=== PATIENT | female | born 1965 | race Caucasian/White ===

== ENCOUNTER 2023-08-16 04:34 | Day surgery (SDC) | payer OTHER ==
[2023-08-09 14:30] VITALS: BMI 23.6
[2023-08-16] MEDS ORDERED: ceFAZolin SODIUM 1 GM VIAL ONE ×2 (06:47→08:03)
[2023-08-16] MEDS: PHENAZOPYRIDINE HCL 100 MG TABLET (FP) PO ONE (06:55)
[2023-08-16] MEDS ORDERED: MIDAZOLAM HCL 2 MG/2 ML SINGLE DOSE VIAL ONE (07:14)
[2023-08-16] MEDS ORDERED: ROCURONIUM BROMIDE 50 MG/5 ML SYRINGE ONE (07:14)
[2023-08-16] MEDS ORDERED: SUCCINYLCHOLINE CHLORIDE 200 MG/10 ML SYRINGE ONE (07:14)
[2023-08-16] MEDS ORDERED: PROPOFOL 20 ML ONE (07:14)
[2023-08-16] MEDS ORDERED: LIDOCAINE HCL/PF 2% SDV 5ML VIAL ONE (07:14)
[2023-08-16] MEDS ORDERED: BUPIVACAINE HCL/PF 0.25% (2.5MG/ML) 10 ML VIAL ONE (07:36)
[2023-08-16] MEDS ORDERED: LIDOCAINE HCL 1%, 10 MG/ML (20ML VIAL) ONE (07:36)
[2023-08-16] MEDS ORDERED: DEXAMETHASONE SOD PHOSPHATE 4 MG/1 ML VIAL ONE (08:04)
[2023-08-16] MEDS: ceFAZolin SODIUM 1 GM VIAL IVPB ONE (08:05)
[2023-08-16] MEDS ORDERED: KETOROLAC TROMETHAMINE 30 MG/1 ML VIAL ONE (09:29)
[2023-08-16] MEDS ORDERED: ONDANSETRON 4 MG/2 ML VIAL ONE (09:29)
[2023-08-16] MEDS ORDERED: GLYCOPYRROLATE 0.2 MG/1 ML VIAL ONE (09:30)
[2023-08-16] MEDS ORDERED: NEOSTIGMINE METHYLSULFATE 0.5 MG/1 ML - 10 ML MDV ONE (09:30)
[2023-08-16] MEDS ORDERED: ONDANSETRON 4 MG/2 ML VIAL IVPUSH PRN ×2 (09:36→10:11)
[2023-08-16] MEDS ORDERED: PROMETHAZINE HCL 25 MG/1 ML VIAL IVPB PRN (09:36)
[2023-08-16] MEDS ORDERED: oxyCODONE HCL 5 MG TABLET PO PRN ×2 (10:11)
[2023-08-16] MEDS ORDERED: BISACODYL 5 MG TABLET.DR (FP) PO PRN (10:11)
[2023-08-16] MEDS: ACETAMINOPHEN INJECTION 100 ML IVPB ONE (10:15)
[2023-08-16] MEDS: ACETAMINOPHEN 1000 MG/100 ML BAG IVPB ONE (10:15)
[2023-08-16] MEDS: TRANEXAMIC ACID 1000 MG/10 ML VIAL IVPUSH ONE (13:32)
[2023-08-16] MEDS: CEFAZOLIN 2 GM in DEXTROSE 5%-WATER - 100 ML IVPB ONE (13:33)
[2023-08-16] MEDS: ACETAMINOPHEN 1000 MG/100 ML BAG IVPB SCH ×2 (13:34→15:18)
[2023-08-16] MEDS: ACETAMINOPHEN 500 MG TABLET (FP) PO ONE (13:34)
[2023-08-16] MEDS: CEFAZOLIN 1 GM in DEXTROSE 5%-WATER - 50 ML IVPB SCH (15:58)
[2023-08-16] MEDS ORDERED: CEFAZOLIN 1 GM in DEXTROSE 5%-WATER - 50 ML IVPB SCH (16:00)
[2023-08-16 18:06] LABS: HEMATOCRIT 41.4 % (32.4-45.2); MCH 32.9 pg (25.7-33.7); MCHC 33.8 g/dl (32.0-36.0); MEAN CELL VOLUME 97.2 fl (80-96); MEAN PLT VOLUME 8.4 fl (7.5-11.1); PLATELET COUNT 339 10^3/uL (134-434); RBC 4.26 M/mm3 (3.60-5.2); RDW 13.8 % (11.6-15.6); WHITE BLOOD COUNT 9.2 K/mm3 (4.0-10.0)
[2023-08-16 18:28] LABS: POTASSIUM 3.7 mmol/L (3.5-5.1)
[2023-08-16 18:29] LABS: CALCIUM 8.7 mg/dL (8.5-10.1)
[2023-08-16 18:30] LABS: BLOOD UREA NITROGEN 13.5 mg/dL (7-18)
[2023-08-16 18:33] LABS: CREATININE 0.7 mg/dL (0.55-1.3)
[2023-08-16] MEDS: LACTATED RINGERS SOLUTION 1,000 ML IV SCH (19:19)
[2023-08-16] MEDS: SIMETHICONE 80 MG TAB.CHEW (FP) PO PRN (21:17)
[2023-08-16] MEDS: ATORVASTATIN CA 40 MG TABLET (FP) PO SCH (21:18)
[2023-08-16] MEDS: INSULIN (LEVEMIR) 100 UNITS/ML UNITS SQ SCH (21:56)
[2023-08-16] MEDS: DOCUSATE SODIUM 100 MG CAPSULE (FP) PO PRN (23:03)
[2023-08-17 08:49] LABS: HEMATOCRIT 37.2 % (32.4-45.2); HEMOGLOBIN 12.4 GM/dL (10.7-15.3); MCH 32.7 pg (25.7-33.7); MCHC 33.5 g/dl (32.0-36.0); MEAN CELL VOLUME 97.7 fl (80-96); MEAN PLT VOLUME 8.4 fl (7.5-11.1); PLATELET COUNT 311 10^3/uL (134-434); RBC 3.81 M/mm3 (3.60-5.2); RDW 13.5 % (11.6-15.6); WHITE BLOOD COUNT 9.6 K/mm3 (4.0-10.0)
[2023-08-17] MEDS: ENOXAPARIN NA (PORCINE) 40 MG/0.4 ML DISP.SYRIN SQ SCH (09:13)
[2023-08-17 09:57] VITALS: BP 112/55; PULSE 84; RESP 18; TEMP 97.8
[2023-08-17] MEDS ORDERED: PATIENT'S OWN MEDICATION (NON-FORMULARY) (Dapagliflozin Propanediol [Farxiga] 5 MG Tablet) PO SCH (10:00)
[2023-08-17 10:12] LABS: POTASSIUM 3.8 mmol/L (3.5-5.1)
[2023-08-17] MEDS ORDERED: ACETAMINOPHEN 500 MG TABLET (FP) PO PRN (10:15)
[2023-08-17] MEDS: LOSARTAN POTASSIUM 50 MG TABLET PO SCH (10:23)
[2023-08-17 10:29] LABS: CREATININE 0.7 mg/dL (0.55-1.3)
[2023-08-17 10:45] LABS: BLOOD UREA NITROGEN 8.8 mg/dL (7-18)
== END 2023-08-17 11:59 | disposition home or self-care (01) ==
LOC: JASUSAT 04:34 → J3W 14:03 → JASUSAT 08-17 11:59
PROVIDERS: ATTEND Obstetrics & Gynecology
PROC: 0UT94ZZ Resection of Uterus, Percutaneous Endoscopic Approach (ICD-10-PCS; principal; 2023-08-16 07:30)
PROC: 0UB74ZZ Excision of Bilateral Fallopian Tubes, Percutaneous Endoscopic Approach (ICD-10-PCS; 2023-08-16 07:30)
DX: D25.1 Intramural leiomyoma of uterus (principal)
CPT/HCPCS: 58570; S2900; 36415; 80048; 82962; 85027; 88305-TC; 88307-TC; 94010; 94760; J0131